=== PATIENT | female | born 1975 | race Caucasian/White ===

== ENCOUNTER 2019-06-29 06:18 | Inpatient (IN) | payer OTHER ==
[2019-06-24 15:40] VITALS: BMI 44.0
[~2019-06-29] VITALS: Ht 144.8 cm; Wt 89.5 kg
[2019-06-29] VITALS (41 sets, daily range): BP systolic 94–178; BP diastolic 48–92; PULSE 64–108; RESP 9–28; Ht 144.8 cm; Wt 89.5 kg
[2019-06-29] MEDS ORDERED: LACTATED RINGER'S 1,000 ML (ENTER RATE) IV SCH (07:00)
[2019-06-29] MEDS ORDERED: CEFAZOLIN 2 GM/50 ML (PMX) 50 ML IVPB ONE (07:00)
[2019-06-29] MEDS ORDERED: DIPHENHYDRAMINE 50 MG INJ IV PRN (07:30)
[2019-06-29] MEDS ORDERED: HYDROmorphONE 1 MG/5 ML IV SYRINGE IV PRN (07:30)
[2019-06-29] MEDS ORDERED: ONDANSETRON 4 MG INJ IV PRN (07:30)
[2019-06-29] MEDS ORDERED: METOCLOPRAMIDE 10 MG INJ IV PRN (07:30)
[2019-06-29] MEDS ORDERED: ALBUTEROL 0.083% (NEB) 2.5 MG/3 ML AMP HHN PRN (07:30)
[2019-06-29] MEDS ORDERED: MEPERIDINE 25 MG INJ IV PRN (07:30)
[2019-06-29] MEDS ORDERED: FENTAnyl 50 MCG/ML VIAL IV PRN ×2 (07:30)
[2019-06-29] MEDS ORDERED: MIDAZOLAM 1 MG/ML 2 ML INJ ONE (07:38)
[2019-06-29] MEDS ORDERED: FENTAnyl 50 MCG/ML VIAL ONE ×2 (07:38→10:07)
[2019-06-29] MEDS ORDERED: morphine SULFATE/PF (10 MG/10 ML) INJ ONE (08:06)
[2019-06-29] MEDS ORDERED: ROPIVACAINE 0.5 % 30 ML VIAL ONE (08:27)
[2019-06-29] MEDS ORDERED: GLYCOPYRROLATE 0.4 MG INJ ONE (08:33)
[2019-06-29] MEDS ORDERED: LIDOCAINE 100 MG SYRINGE ONE (09:55)
[2019-06-29] MEDS ORDERED: SUCCINYLCHOLINE CHLORIDE 100 MG/5 ML SYG IV ONE (09:55)
[2019-06-29] MEDS ORDERED: PROPOFOL 20 ML ONE (09:55)
[2019-06-29] MEDS ORDERED: ROCURONIUM 50 MG INJ ONE (09:55)
[2019-06-29] MEDS ORDERED: SUGAMMADEX SODIUM 200 MG/2 ML VIAL IV ONE (09:55)
[2019-06-29] MEDS ORDERED: CEFAZOLIN 1 GM INJ ONE (09:55)
[2019-06-29] MEDS: FENTAnyl 50 MCG/ML VIAL IV PRN ×2 (10:53→11:00)
[2019-06-29] MEDS ORDERED: ZOLPIDEM 5 MG TAB PO PRN (11:00)
[2019-06-29] MEDS ORDERED: HYDROCODONE/APAP (5/325) TAB PO PRN (11:00)
[2019-06-29] MEDS ORDERED: DIPHENHYDRAMINE 50 MG CAP PO PRN (11:00)
[2019-06-29] MEDS ORDERED: ONDANSETRON INJ 6 MG in DEXTROSE 5% 50 ML IVPB PRN (11:00)
[2019-06-29] MEDS: HYDROmorphONE 1 MG/5 ML IV SYRINGE IV PRN ×4 (11:37→16:09)
[2019-06-29] MEDS: METOCLOPRAMIDE 10 MG TAB PO SCH ×3 (12:00→23:30)
[2019-06-29] MEDS ORDERED: SOD CHLORIDE 0.9% 100 ML ONE (13:35)
[2019-06-29] MEDS ORDERED: IOHEXOL 300MG/ML 150 ML BTL ONE (13:35)
[2019-06-29] MEDS: CEFAZOLIN 1 GM/50 ML (PMX) 50 ML IVPB SCH ×2 (14:00→21:50)
[2019-06-29] MEDS: KETOROLAC 30 MG INJ IV SCH ×3 (17:00→23:32)
[2019-06-29] MEDS: HYDROCODONE/APAP (5/325) TAB PO PRN (18:08)
[2019-06-29] MEDS: LACTATED RINGER'S 1,000 ML IV SCH ×2 (18:12→18:32)
[2019-06-29] MEDS: ENOXAPARIN 30 MG/0.3 ML SYG SC SCH (21:00)
[2019-06-30 01:39] VITALS: BP 96/51; PULSE 70; RESP 18
[2019-06-30] MEDS: LACTATED RINGER'S 1,000 ML IV SCH ×2 (02:32→05:35)
[2019-06-30] MEDS: HYDROCODONE/APAP (5/325) TAB PO PRN ×3 (04:52→16:06)
[2019-06-30] MEDS: CEFAZOLIN 1 GM/50 ML (PMX) 50 ML IVPB SCH (04:54)
[2019-06-30 05:04] VITALS: BP 100/60; PULSE 75; RESP 17
[2019-06-30] MEDS: KETOROLAC 30 MG INJ IV SCH ×4 (05:31→23:31)
[2019-06-30] MEDS: METOCLOPRAMIDE 10 MG TAB PO SCH ×4 (05:31→23:33)
[2019-06-30 08:09] VITALS: BP 96/54; PULSE 80; RESP 18
[2019-06-30] MEDS: ENOXAPARIN 30 MG/0.3 ML SYG SC SCH ×2 (09:27→21:00)
[2019-06-30 19:30] VITALS: BP 112/59; PULSE 77; RESP 18
[2019-06-30] MEDS ORDERED: oxyCODONE (CR) 15 MG TAB [oxyCONTIN] PO PRN (21:30)
[2019-06-30] MEDS: oxyCODONE 15 MG TAB PO PRN (21:54)
[2019-07-01 02:15] VITALS: BP 99/57; PULSE 76; RESP 18
[2019-07-01] MEDS: oxyCODONE 15 MG TAB PO PRN ×3 (03:49→21:49)
[2019-07-01] MEDS: METOCLOPRAMIDE 10 MG TAB PO SCH ×3 (05:13→17:40)
[2019-07-01] MEDS: KETOROLAC 30 MG INJ IV SCH (05:16)
[2019-07-01 08:08] VITALS: BP 121/66; PULSE 74; RESP 18
[2019-07-01] MEDS: ENOXAPARIN 30 MG/0.3 ML SYG SC SCH ×2 (09:00→21:34)
[2019-07-01] MEDS ORDERED: BISACODYL (EC) 5 MG TAB PO ONE (10:00)
[2019-07-01 14:00] VITALS: BP 124/60; PULSE 78; RESP 18
[2019-07-01] MEDS: KETOROLAC 30 MG INJ IV PRN ×2 (15:25→21:25)
[2019-07-01 20:39] VITALS: BP 141/69; PULSE 95; RESP 20
[2019-07-02 00:35] VITALS: BP 118/65; PULSE 88; RESP 18
[2019-07-02] MEDS: METOCLOPRAMIDE 10 MG TAB PO SCH ×3 (05:27→12:00)
[2019-07-02] MEDS: KETOROLAC 30 MG INJ IV PRN (08:23)
[2019-07-02 08:24] VITALS: BP 121/69; PULSE 75; RESP 18
[2019-07-02] MEDS: oxyCODONE 15 MG TAB PO PRN (08:42)
[2019-07-02] MEDS: ENOXAPARIN 30 MG/0.3 ML SYG SC SCH (08:44)
== END 2019-07-02 13:54 | disposition home or self-care (01) | DRG 742 ==
LOC: REC 06:18 → MS1 16:47
PROVIDERS: ADMIT Obstetrics & Gynecology; ATTEND Obstetrics & Gynecology
PROC: 0UT70ZZ Resection of Bilateral Fallopian Tubes, Open Approach (ICD-10-PCS; 2019-06-29)
PROC: 0UT10ZZ Resection of Left Ovary, Open Approach (ICD-10-PCS; 2019-06-29)
PROC: 0UT90ZZ Resection of Uterus, Open Approach (ICD-10-PCS; principal; 2019-06-29 07:30)
DX: N80.0 Endometriosis of uterus (principal); Z68.41 Body mass index [BMI] 40.0-44.9, adult; E66.01 Morbid (severe) obesity due to excess calories; N92.1 Excessive and frequent menstruation with irregular cycle; N73.1 Chronic parametritis and pelvic cellulitis; N94.89 Other specified conditions associated with female genital organs and menstrual cycle; D25.1 Intramural leiomyoma of uterus
CPT/HCPCS: 74176; 74178; 80051; 82565; 84520; 85025; 86850; 86900; 86901; 86920; 87086; 88307; J0690; J1170; J1200; J1650; J1885; J2001; J2175; J2250; J2274; J2405; J2795; J3010; J7120; Q9967